=== PATIENT | female | born 1955 | race Caucasian/White ===

== ENCOUNTER 2019-06-19 05:17 | Inpatient (IN) | payer BC ==
[~2019-06-19] VITALS: Ht 157.5 cm; Wt 85.7 kg
[2019-06-19] MEDS ORDERED: METF-416 PO (06:47)
[2019-06-19] MEDS ORDERED: NAPR-681 PO (06:47)
[2019-06-19] MEDS ORDERED: BENA1TAB19 PO (06:47)
[2019-06-19] MEDS ORDERED: IBUP-2271 PO (06:47)
[2019-06-19] MEDS ORDERED: OMEP20TA2 PO (06:47)
[2019-06-19 06:56] LABS: HEMATOCRIT 40.5 % (36.0-48.0); HEMOGLOBIN 13.6 g/dL (12.0-16.0); MEAN CORPUSCULAR HEMOGLOBIN 29.6 pg (28.0-32.0); MEAN CORPUSCULAR VOLUME 88.4 fL (81.0-99.0); PLATELET 202 x1000/uL (130-400); RED BLOOD CELL COUNT 4.58 mill/uL (4.2-5.4); RED CELL DISTRIBUTION WIDTH 13.3 % (11.6-14.6)
[2019-06-19 07:02] LABS: CLARITY URINE CLEAR (CLEAR); COLOR URINE YELLOW (YELLOW); KETONES URINE NEGATIVE (NEGATIVE); LEUKOCYTE ESTERASE URINE NEGATIVE (NEGATIVE); NITRITE URINE NEGATIVE (NEGATIVE); OCCULT BLOOD URINE NEGATIVE (NEGATIVE); PH URINE 6.5 (4.5-8.0); PROTEIN URINE NEGATIVE (NEGATIVE); SPECIFIC GRAVITY URINE 1.005 (1.005-1.030); UROBILINOGEN URINE 0.2 E.U./dL (0.2-1.0)
[2019-06-19 07:04] LABS: CHLORIDE 104 mEq/L (98-107)
[2019-06-19 07:07] LABS: PARTIAL THROMBOPLASTIN TIME 25.7 sec (23.4-31.0); PROTHROMBIN TIME 10.5 sec (9.6-11.0)
[2019-06-19] MEDS ORDERED: TRANEXAMIC ACID 1,000 MG in SODIUM CHLORIDE 0.9% 100 ML IV SCH (07:30)
[2019-06-19] MEDS ORDERED: MORPHINE SULFATE/PF 1MG/ML 10ML AMP ONE (07:32)
[2019-06-19] MEDS ORDERED: METHYLENE BLUE 50 MG/10 ML AMP IV ONE (07:32)
[2019-06-19] MEDS ORDERED: EPINEPHRINE 1:1000 1 MG/ML AMP ONE ×2 (07:33→07:39)
[2019-06-19] MEDS ORDERED: GENTAMICIN SULF 40MG/ML 2ML VIAL ONE (07:33)
[2019-06-19] MEDS ORDERED: BACITRACIN 15GM TUBE TOP ONE (07:33)
[2019-06-19] MEDS ORDERED: BACITRACIN 50,000 UNITS/VIAL ONE (07:34)
[2019-06-19] MEDS ORDERED: NORMAL SALINE 0.9% 10 ML SYR ONE (07:34)
[2019-06-19] MEDS ORDERED: VANCOMYCIN HCL 500 MG/VIAL ONE (07:34)
[2019-06-19] MEDS ORDERED: PROPOFOL 10MG/ML 100ML 100 ML IV ONE (07:37)
[2019-06-19] MEDS ORDERED: BUPIVACAINE HCL/DEXTROSE/PF 0.75% 2ML AMP INJ ONE (07:38)
[2019-06-19] MEDS ORDERED: MIDAZOLAM HCL 2 MG/2 ML VIAL ONE (07:41)
[2019-06-19] MEDS ORDERED: FENTANYL CITRATE/PF 50MCG/ML 2ML VIAL ONE (07:41)
[2019-06-19] MEDS ORDERED: CEFAZOLIN SODIUM 1000MG/VIAL ONE (08:10)
[2019-06-19] MEDS ORDERED: PHENYLEPHRINE HCL 10 MG/ML 1ML (IV VIAL) IV ONE (08:15)
[2019-06-19] MEDS ORDERED: BUPIVACAINE HCL/EPINEPHRINE 0.5%/0.0005 30ML ONE (08:28)
[2019-06-19] MEDS ORDERED: BUPIVACAINE/EPINEPH/PF 0.25%/0.0005 10ML ONE (08:29)
[2019-06-19] MEDS: SODIUM CHLORIDE 0.9% 1,000 ML IV SCH ×2 (09:01→17:29)
[2019-06-19] MEDS ORDERED: PROPOFOL 200MG/20ML VIAL IV ONE (10:35)
[2019-06-19] MEDS ORDERED: ONDANSETRON HCL 4MG/2ML INJ IV PRN ×2 (11:15→11:30)
[2019-06-19] MEDS ORDERED: FENTANYL CITRATE/PF 50MCG/ML 2ML VIAL IV PRN (11:15)
[2019-06-19] MEDS ORDERED: HYDROMORPHONE HCL/PF 2MG/ML CPJ IV PRN (11:15)
[2019-06-19] MEDS ORDERED: ZOLPIDEM TARTRATE 5MG TABLET PO PRN (11:30)
[2019-06-19] MEDS ORDERED: ACETAMINOPHEN 325MG TABLET PO PRN (11:30)
[2019-06-19] MEDS ORDERED: MAGNESIUM HYDROXIDE 400MG/5ML 30ML UDC PO PRN (11:30)
[2019-06-19] MEDS ORDERED: DIPHENHYDRAMINE INJ IV PRN (11:45)
[2019-06-19] MEDS ORDERED: HYDROMORPHONE PCA 10MG/50ML IV PRN (11:45)
[2019-06-19] MEDS ORDERED: NALOXONE INJ IV PRN (11:45)
[2019-06-19] MEDS ORDERED: ONDANSETRON INJ IV PRN (11:45)
[2019-06-19 14:09] VITALS: BP 149/77
[2019-06-19 14:28] VITALS: BP 149/77
[2019-06-19] MEDS: DOCUSATE SODIUM 100MG CAPSULE PO SCH (17:29)
[2019-06-19] MEDS: CEFAZOLIN 2,000 MG in DEXT 5% WATER 100 ML IV SCH (17:29)
[2019-06-19] MEDS ORDERED: DEXTROSE 50% WATER 50ML SYRINGE IV PRN (19:30)
[2019-06-19 20:00] VITALS: BP 133/68
[2019-06-19] MEDS: BLOOD SUGAR DIAGNOSTIC STRIP TEST SCH (20:00)
[2019-06-19] MEDS: INSULIN LISPRO 100 UNITS/ML SUBCUT SCH (20:10)
[2019-06-20] VITALS: BP 111/68
[2019-06-20] MEDS: BENAZEPRIL 10MG TABLET PO SCH ×2 (00:45→09:09)
[2019-06-20] MEDS: CEFAZOLIN 2,000 MG in DEXT 5% WATER 100 ML IV SCH (02:24)
[2019-06-20 04:00] VITALS: BP 126/81
[2019-06-20] MEDS: OMEPRAZOLE 20MG CAPSULE EXTENDED RELEASE PO SCH (06:22)
[2019-06-20] MEDS: BLOOD SUGAR DIAGNOSTIC STRIP TEST SCH ×4 (06:38→20:57)
[2019-06-20 07:12] LABS: BASOPHILS % 0.7 % (0.0-2.0); HEMATOCRIT. 37.2 % (36.0-48.0); HEMOGLOBIN. 12.4 g/dL (12.0-16.0); LYMPHOCYTES % 16.2 % (20.0-50.0); MEAN CORPUSCULAR HEMOGLOBIN 29.5 pg (28.0-32.0); MEAN CORPUSCULAR VOLUME 88.2 fL (81.0-99.0); MEAN PLATELET VOLUME 12.1 fl (7.4-10.4); MONOCYTES % 8.2 % (2.0-8.0); NEUTROPHILS % 74.9 % (40.0-76.0); PLATELET 208 x1000/uL (130-400); RED BLOOD CELL COUNT 4.21 mill/uL (4.2-5.4); RED CELL DISTRIBUTION WIDTH 13.2 % (11.6-14.6)
[2019-06-20 08:46] LABS: CHLORIDE 100 mEq/L (98-107)
[2019-06-20] MEDS: DOCUSATE SODIUM 100MG CAPSULE PO SCH ×2 (09:09→17:09)
[2019-06-20] MEDS: METFORMIN HCL 500MG TABLET PO SCH ×2 (09:10→17:09)
[2019-06-20] MEDS: HYDROCHLOROTHIAZIDE 25MG TABLET PO SCH (09:10)
[2019-06-20] MEDS: ENOXAPARIN 30MG/0.3ML SYR SUBCUT SCH ×2 (09:11→20:56)
[2019-06-20] MEDS: INSULIN LISPRO 100 UNITS/ML SUBCUT SCH ×4 (09:25→21:00)
[2019-06-20 09:43] VITALS: BP 140/83
[2019-06-20 12:00] VITALS: BP 140/86
[2019-06-20 16:00] VITALS: BP 139/87
[2019-06-20] MEDS: HYDROCODONE/ACETAMINOPHEN 5/325MG TABLET PO PRN ×2 (18:41→23:56)
[2019-06-20 20:00] VITALS: BP 106/54
[2019-06-20] MEDS: SODIUM CHLORIDE 0.9% 1,000 ML IV SCH (21:15)
[2019-06-21] VITALS: BP 118/75
[2019-06-21 04:00] VITALS: BP 116/71
[2019-06-21] MEDS: HYDROCODONE/ACETAMINOPHEN 5/325MG TABLET PO PRN ×3 (05:06→13:13)
[2019-06-21 06:16] LABS: BASOPHILS % 0.3 % (0.0-2.0); EOSINOPHILS % 0.1 % (0.0-5.0); HEMATOCRIT. 34.5 % (36.0-48.0); HEMOGLOBIN. 11.5 g/dL (12.0-16.0); LYMPHOCYTES % 12.2 % (20.0-50.0); MEAN CORPUSCULAR HEMOGLOBIN 29.2 pg (28.0-32.0); MEAN CORPUSCULAR VOLUME 87.4 fL (81.0-99.0); MEAN PLATELET VOLUME 11.6 fl (7.4-10.4); NEUTROPHILS % 77.4 % (40.0-76.0); PLATELET 158 x1000/uL (130-400); RED BLOOD CELL COUNT 3.94 mill/uL (4.2-5.4); RED CELL DISTRIBUTION WIDTH 13.1 % (11.6-14.6)
[2019-06-21 06:40] LABS: CHLORIDE 98 mEq/L (98-107)
[2019-06-21] MEDS: OMEPRAZOLE 20MG CAPSULE EXTENDED RELEASE PO SCH (06:45)
[2019-06-21] MEDS: BLOOD SUGAR DIAGNOSTIC STRIP TEST SCH ×2 (06:48→11:47)
[2019-06-21] MEDS ORDERED: POTASSIUM CHLORIDE 20MEQ TABLET SR PO NR (07:45)
[2019-06-21] MEDS ORDERED: METFORMIN HCL 500MG TABLET PO SCH (07:50)
[2019-06-21 08:00] VITALS: BP 115/68
[2019-06-21] MEDS: DOCUSATE SODIUM 100MG CAPSULE PO SCH (08:07)
[2019-06-21] MEDS: HYDROCHLOROTHIAZIDE 25MG TABLET PO SCH (08:07)
[2019-06-21] MEDS: BENAZEPRIL 10MG TABLET PO SCH (08:08)
[2019-06-21] MEDS: ENOXAPARIN 30MG/0.3ML SYR SUBCUT SCH (08:08)
[2019-06-21] MEDS: INSULIN LISPRO 100 UNITS/ML SUBCUT SCH ×2 (08:33→11:57)
[2019-06-21 09:16] VITALS: BP 115/68
[2019-06-21 13:13] VITALS: BP 120/72
== END 2019-06-21 15:07 | disposition home or self-care (01) | DRG 470 ==
LOC: OR 05:17 → 6EST 05:18
PROVIDERS: ADMIT Orthopaedic Surgery; ATTEND Orthopaedic Surgery
PROC: 0SRC0J9 Replacement of Right Knee Joint with Synthetic Substitute, Cemented, Open Approach (ICD-10-PCS; principal; 2019-06-19)
DX: M17.0 Bilateral primary osteoarthritis of knee (principal); E11.65 Type 2 diabetes mellitus with hyperglycemia; E66.9 Obesity, unspecified; M25.761 Osteophyte, right knee; M21.161 Varus deformity, not elsewhere classified, right knee; M65.861 Other synovitis and tenosynovitis, right lower leg; E78.5 Hyperlipidemia, unspecified; I83.93 Asymptomatic varicose veins of bilateral lower extremities; I10 Essential (primary) hypertension; D72.829 Elevated white blood cell count, unspecified; G89.29 Other chronic pain; Z68.34 Body mass index [BMI] 34.0-34.9, adult; Z79.84 Long term (current) use of oral hypoglycemic drugs; Z86.19 Personal history of other infectious and parasitic diseases
CPT/HCPCS: 36415; 73560; 80048; 80061; 81003; 82962; 83036; 85027; 86850; 86900; 88305; 88311; 97110; 97116; 97162; 97166; 97535; C1713; C1776; J0171; J0690; J1170; J1580; J1650; J1815; J2250; J2274; J2370; J2405; J2704; J3010; J3370; J3490; J7050; J7060; L1830; Q9968